=== PATIENT | male | born 1960 | race Caucasian/White ===

== ENCOUNTER 2023-12-22 04:19 | Day surgery (SDC) | payer OTHER ==
[2023-11-29 18:16] VITALS: BMI 28.6
[2023-12-22] MEDS ORDERED: oxyCODONE HCL 5 MG TABLET PO PRN (12:30)
[2023-12-22] MEDS ORDERED: LACTATED RINGERS SOLUTION 1,000 ML IV SCH (12:30)
[2023-12-22] MEDS ORDERED: ONDANSETRON 4 MG/2 ML VIAL IVPUSH PRN (12:30)
[2023-12-22] MEDS ORDERED: BUPIVACAINE HCL/PF 0.25% (2.5MG/ML) 10 ML VIAL ONE (12:34)
[2023-12-22] MEDS ORDERED: PROPOFOL 20 ML ONE (12:37)
[2023-12-22] MEDS ORDERED: MIDAZOLAM HCL 2 MG/2 ML SINGLE DOSE VIAL ONE (12:37)
[2023-12-22] MEDS ORDERED: ROCURONIUM BROMIDE 50 MG/5 ML SYRINGE ONE (12:37)
[2023-12-22] MEDS ORDERED: ONDANSETRON 4 MG/2 ML VIAL ONE (12:40)
[2023-12-22] MEDS ORDERED: DEXAMETHASONE SOD PHOSPHATE 4 MG/1 ML VIAL ONE (12:40)
[2023-12-22] MEDS ORDERED: ceFAZolin SODIUM 1 GM VIAL ONE (12:40)
[2023-12-22] MEDS: ceFAZolin SODIUM 1 GM VIAL IVPB ONE ×3 (12:47→12:53)
[2023-12-22] MEDS: BUPIVACAINE HCL/PF 0.25% (2.5MG/ML) 10 ML VIAL IJ ONE ×4 (12:54→13:28)
[2023-12-22] MEDS ORDERED: SUGAMMADEX SODIUM 200 MG/2 ML VIAL ONE (16:27)
[2023-12-22] MEDS ORDERED: ACETAMINOPHEN INJECTION 100 ML IVPB ONE (17:40)
[2023-12-22] MEDS: ACETAMINOPHEN 1000 MG/100 ML BAG IVPB ONE (17:56)
[2023-12-22] MEDS: oxyCODONE HCL 5 MG TABLET PO PRN (18:46)
[2023-12-22] MEDS ORDERED: oxyCODONE HCL 5 MG TABLET ONE (18:47)
[2023-12-22 18:51] VITALS: RESP 20; TEMP 97.5
[2023-12-22 20:52] VITALS: BP 120/61; PULSE 60
== END 2023-12-22 20:52 | disposition home or self-care (01) ==
LOC: JASU-SURG 04:19
PROVIDERS: ATTEND Surgery
PROC: 8E0W4CZ Robotic Assisted Procedure of Trunk Region, Percutaneous Endoscopic Approach (ICD-10-PCS; 2023-12-22)
PROC: 0YU64JZ Supplement Left Inguinal Region with Synthetic Substitute, Percutaneous Endoscopic Approach (ICD-10-PCS; principal; 2023-12-22 12:00)
DX: K40.90 Unilateral inguinal hernia, without obstruction or gangrene, not specified as recurrent (principal)
CPT/HCPCS: 49505; S2900; 82962; 86850; 86900; 86901; 94760; C1781; J0131